=== PATIENT | male | born 1965 | race Caucasian/White ===

== ENCOUNTER 2022-01-17 14:31 | Emergency (ER) | payer MEDICAID ==
[~2022-01-17] VITALS: Ht 172.7 cm; Wt 68.0 kg
[2022-01-17 15:20] VITALS: BP_SYST 114
[2022-01-17] MEDS ORDERED: OFLO5DRO6 OP (21:18)
[2022-01-17] MEDS ORDERED: IBUP-1969 PO (21:21)
[2022-01-17] MEDS ORDERED: CLIN-142 PO (21:23)
[2022-01-17] MEDS ORDERED: cefTRIAXone 1 GM in LIDOCAINE 1%, 20 ML MDV 2.1 ML IM ONE (21:30)
== END 2022-01-17 21:57 | disposition home or self-care (01) ==
LOC: SED 14:31
DX: H10.31 Unspecified acute conjunctivitis, right eye (principal)
CPT/HCPCS: 99283; 96372; J0696; J2001